=== PATIENT | female | born 1960 | race African-American/Black ===

== ENCOUNTER 2019-04-14 21:08 | Emergency (ER) | payer SELFPAY ==
[~2019-04-14] VITALS: Ht 175.3 cm; Wt 93.0 kg
[2019-04-14] MEDS ORDERED: KETOROLAC 30MG/ML VIAL IV STA (22:25)
[2019-04-14] MEDS ORDERED: ONDANSETRON HCL 4MG/2ML INJ IV STA (22:25)
[2019-04-14] MEDS ORDERED: SODIUM CHLORIDE 0.9% 1,000 ML IV ONE (22:25)
[2019-04-15 01:00] VITALS: BP 113/64
== END 2019-04-15 01:12 | disposition home or self-care (01) ==
LOC: ER 21:08
DX: R51 Headache (principal)
CPT/HCPCS: 70450; 82962; 96361; 96374; 96375; 99284; J1885; J2405; J7030